=== PATIENT | male | born 2000 | race Caucasian/White ===

== ENCOUNTER 2019-07-14 15:10 | Emergency (ER) | payer BC ==
--- OUTSIDE RECORDS SUMMARY | 2019-07-14 15:12 | XMS REPORT | Summary of Care ---
:2000 Author Organization [facility] Address [address] [place] [address] Care Team Providers Name Role Phone JON GUTIERREZ M.D. 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 Start : 18-Oct-2018 Active 454 GM Bottle Alprolix SOLR Refills: 0 Active Allergies and Adverse Reactions Name Dates Details No Known Drug Allergies (Allergy) Status: Active Past Medical History Name Dates Details History of Hemarthrosis of joint (719.19, M25.00) Status: Resolved History of Hematoma of left iliopsoas muscle, subsequent encounter (V58.89, S70.12XD) Status: Resolved History of No significant past medical history Status: Resolved Procedures Procedure Dates Details History of Oral Surgery Tooth Extraction [place] [facility] Completed Immunization Name Dates Details Immunizations not documented Family History Name Dates Details Family history of Parkinson's disease (V17.2, Z82.0) Comments: Other Status: Active Name Dates Details Family history of hemophilia B (V18.3, Z83.2) Status: Active Social History Name Dates Details Unknown if ever smoked Vital Signs Date Test Result Details No Known Vitals to report Results Date Description Value Details Results not documented Plan of Care Name Dates Details Planned Observations Planned Goals not documented Planned Encounters Appointment; ADULT, HEMOPHILIA On: 05-Jul-2019 9:00 Instructions Name Dates Details Instructions not documented Encounters Appointment; ADULT, HEMOPHILIA On: 12-Oct-2018 9:30 Encounter Diagnosis: Problem not documented
--- OUTSIDE RECORDS SUMMARY | 2019-07-14 15:12 | XMS REPORT | Summary of Care ---
:2000 Author Name RY GUTIERREZ M.D. Address [facility] Unavailable , Care Team Providers Name Role Phone RY GUTIERREZ M.D. 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 Start : 18-Oct-2018 Active 454 GM Bottle Allergies and Adverse Reactions Name Dates Details No Known Drug Allergies (Allergy) Status: Active Past Medical History Name Dates Details History of Hemarthrosis of joint (719.19, M25.00) Status: Resolved History of Hematoma of left iliopsoas muscle, subsequent encounter (V58.89, S70.12XD) Status: Resolved History of No significant past medical history Status: Resolved Procedures Procedure Dates Details History of Oral Surgery Tooth Extraction [place] Tooth Completed Immunization Name Dates Details Immunizations not documented Family History Name Dates Details Family history of Parkinson's disease (V17.2, Z82.0) Comments: Other Status: Active Name Dates Details Family history of hemophilia B (V18.3, Z83.2) Status: Active Social History Name Dates Details Unknown if ever smoked Vital Signs Date Test Result Details [id number] BP Systolic 118 mm[Hg] Status: Comments: Location: LUE; Position: Sitting BP Diastolic 75 mm[Hg] Status: Comments: Location: LUE; Position: Sitting Height 68.75 in Status: Physical Findings 38 Status: Comments: 2-20 Stature Percentile Weight 73.48 kg Status: Body Mass Index Calculated 24.1 kg/m2 Status: Body Surface Area Calculated 1.88 m2 Status: Physical Findings 60 Status: Comments: 2-20 Weight Percentile Physical Findings 64 Status: Comments: BMI Percentile Temperature 98.4 f Status: Comments: Method: Oral Heart Rate 77 /min Status: Respiration Rate 18 /min Status: Comments: Quality: Normal Results Date Description Value Details Results not documented Plan of Care Name Dates Details Planned Observations Planned Goals not documented Planned Encounters Appointment; ADULT, HEMOPHILIA On: 31-May-2019 9:00 Interventions Provided PlanTreatment Plan/Recommendations: Labs Ordered Today Discussed Emergency Action Plan in the Event of a: Bleed Instructed to: Factor Infusion and Administration Education Provided, In the event of a Bleed call our Center for appropriate Treatment and Management, Notify our Center prior to Dental or Surgical Procedures, Wear Medical Alert ID at all times Avoid Nonsteroidal Anti- Inflammatory Drugs (NSAIDS), Aspirin and products containing Aspirin due toincreased risk of bleeding Maintain active Infusion/Bleed Event Logs and provide at next clinic visit Plan:1. 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 Unclear his real baseline FIX level.- For moderate bleeds recommend infusing Alprolix 30-50 IU/kg/dose and for major bleeds 60-90 IU/kg/dose- We discussed the importance of adherence to prevent joint bleeds and arthropathy especially when doing sports.2. Labs today show a normal CBC with a negative FIX inhibitor screen.3. We discussed the possible risks and complications of chewing tobacco. I encourage him to stop.4. Visit primary doctor and dentist at least once a year5. Return for follow-up in 6-12 months of sooner if indicated6. 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 Very active in sports and by history some adherence issueswith prophylaxis. Instructions Name Dates Details Instructions not documented Encounters Appointment; ADULT, HEMOPHILIA On: 12-Oct-2018 9:30 Encounter Diagnosis: Problem not documented
[2019-07-14] MEDS ORDERED: BUPIVACAINE 0.5% PF 10 ML VIAL ONE (16:43)
[2019-07-14] MEDS ORDERED: TETANUS & DIPHTHERIA TOX,ADULT 0.5 ML VIAL ONE (16:44)
--- NOTE | 2019-07-14 16:53 | RAD REPORT ---
EXAM DESCRIPTION: RAD - Hand Right 3 View - 07/14/2019 4:34 pm CLINICAL HISTORY: Right hand pain status post injury FINDINGS: No fracture or dislocation is seen. A 2.5 millimeter well-circumscribed lucency within the fourth middle phalanx is nonspecific. It is re commended that the patient a followup finger x-ray in 3 months to assess stability
--- NOTE | 2019-07-14 17:34 | ER ---
Nurse's Notes [facility] Name: Darian Velázquez Age: 19 yrs Sex: Male : 2000 Arrival Date: 07/14/2019 Time: 15:11 Bed 25 Private MD: Diagnosis: Finger Laceration Presentation: 07/14 15:14 Presenting complaint: Patient states: "I closed my finger in a car door" Laceration aj1 noted to right index finger, bleeding moderately, pressure dressing applied. Transition of care: patient was not received from another setting of care. Complicating Factors: There are no complicating factors for this patient. Onset of symptoms was July 14, 2019. Risk Assessment: Do you want to hurt yourself or someone else? Patient reports no desire to harm self or others. Initial Sepsis Screen: Does the patient meet any 2 criteria? No. Patient's initial sepsis screen is negative. Does the patient have a suspected source of infection? Yes: Skin breakdown/wound. Care prior to arrival: None. 15:14 Method Of Arrival: Ambulatory aj 15:14 Acuity: EVA 3 aj1 Triage Assessment: 15:14 General: Appears in no apparent distress. comfortable, Behavior is calm, cooperative, aj1 appropriate for age. Pain: Complains of pain in palmar aspect of distal phalanx of right index finger. Neuro: Level of Consciousness is awake, alert, obeys commands. Cardiovascular: Patient's skin is warm and dry. Respiratory: Airway is patent Respiratory effort is even, unlabored, Respiratory pattern is regular, symmetrical. Injury Description: Laceration sustained to palmar aspect of distal phalanx of right index finger. Historical: - Allergies: 15:15 No Known Allergies; aj1 - Home Meds: 15:15 None [Active]; aj1 - PMHx: 15:15 HEMOPHELIA B; aj1 - PSHx: 15:15 None; aj1 - Immunization history:: Flu vaccine is not up to date. - Coronavirus screen:: The patient has NOT traveled to [place] in the past 14 days. - Social history:: Smoking status: Patient/guardian denies using tobacco. - Ebola Screening: : Patient denies travel to an Ebola-affected area in the 21 days before illness onset. Screenin:56 Abuse screen: Denies threats or abuse. Denies injuries from another. Nutritional ls4 screening: No deficits noted. Tuberculosis screening: No symptoms or risk factors identified. Fall Risk None identified. Assessment: 16:00 Derm:. Musculoskeletal: Circulation, motion, and sensation intact. Capillary refill < 3 ls4 seconds, Range of motion: intact in all extremities, Swelling absent. Injury Description: Laceration is clean, 2.6 to 7.5 cm long, bleeding moderately, was sustained 30-60 minutes ago. is bleeding moderately a dressing was applied. 16:00 General: Appears in no apparent distress. Behavior is calm, cooperative. Neuro: No ls4 deficits noted. Cardiovascular: No deficits noted. Respiratory: No deficits noted. 17:00 Reassessment: Patient appears in no apparent distress at this time. Patient and/or ls4 family updated on plan of care and expected duration. Pain level reassessed. Patient is alert, oriented x 3, equal unlabored respirations, skin warm/dry/pink. WOUND SUTURED BY HEMAL BRYANT. WOUND CLEANED WITH SALINE AND OPEN TO AIR. Patient states symptoms have improved. Vital Signs: 15:14 BP 126 / 79; Pulse 65; Resp 18; Temp 98.1; Pulse Ox 97% on R/A; Weight 74.84 kg (R); aj1 Height 5 ft. 9 in. (175.26 cm) (R); Pain 1/10; 15:14 Body Mass Index 24.37 (74.84 kg, 175.26 cm) [facility] ED Course: 15:11 Patient arrived in ED. as 15:14 Arm band placed on Patient placed in waiting room, Patient notified of wait time. 1 15:15 Triage completed. [facility] 15:56 Patient has correct armband on for positive identification. Bed in low position. Call ls4 light in reach. Side rails up X 1. 15:56 Assist provider with laceration repair on palmar aspect of distal phalanx of right ls4 index finger. Patient did not have IV access during this emergency room visit. Irrigation of laceration on palmar aspect of distal phalanx of right index finger irrigated with normal saline Patient tolerated well. Wound care:. 15:57 Hemal Garcia PA is [facility]CP. [facility] 15:57 Mele Jennings MD is Attending Physician. [facility] 16:04 Hien Alfaro, WILMA is Primary Nurse. ls4 16:31 Hand Right 3 View XRAY In Process Unspecified. EDMS Administered Medications: 16:36 Drug: Tetanus-Diphtheria Toxoid Adult 0.5 ml {Business Services Assistant: [employer]. Exp: ls4 06/08/2021. Lot #: [id number]. } Route: IM; Site: right deltoid; 17:55 Follow up: Response: No adverse reaction ls4 16:44 Drug: Marcaine (0.5 %) 10 ml {Note: per Hemal bryant .} Volume: 10 ml; Route: ls4 Infiltration; Outcome: 17:33 Discharge ordered by . shivani 17:50 Condition: good ls4 17:50 Discharged to home ambulatory, with family. ls4 17:50 Discharge instructions given to patient, family, Instructed on discharge instructions, follow up and referral plans. medication usage, Demonstrated understanding of instructions, follow-up care, medications, Prescriptions given X 1. 18:10 Patient left the ED. ls4 Signatures: Dispatcher [employer] EDMS Morenita Van RN RN aj1 Hemal Garcia PA PA jmm Martinez, Amelia as Hien Alfaro RN RN ls4 Corrections: (The following items were deleted from the chart) 15:15 15:14 Acuity: EVA 4 aj1 aj1 16:56 16:36 Tetanus-Diphtheria Toxoid Adult 0.5 ml IM in right deltoid Business Services Assistant: [employer] Lot: [id number] Exp: 04/21/2021 ls4
--- NOTE | 2019-07-14 17:34 | EDPHYS ---
Physician Documentation [facility] Name: Darian Velázquez Age: 19 yrs Sex: Male : 2000 Arrival Date: 07/14/2019 Time: 15:11 Bed 25 Private MD: ED Physician Mele Jennings HPI: 07/14 16:17 This 19 yrs old Male presents to ER via Ambulatory with complaints of jmm Laceration - finger. 16:17 The patient or guardian reports injury, a laceration, clean. Onset: The jmm symptoms/episode began/occurred acutely. Modifying factors: The symptoms are alleviated by nothing, the symptoms are aggravated by nothing. Associated signs and symptoms: Pertinent negatives:. This is a 19 year old male with a history of hemophilia that presents to the ED with complaints of laceration to his right 2nd finger. Patient states he accidently slammed a car door on the finger. Not UTD on tetanus immunizations. . Historical: - Allergies: 15:15 No Known Allergies; aj1 - Home Meds: 15:15 None [Active]; aj1 - PMHx: 15:15 HEMOPHELIA B; aj1 - PSHx: 15:15 None; aj1 - Immunization history:: Flu vaccine is not up to date. - Coronavirus screen:: The patient has NOT traveled to [place] in the past 14 days. - Social history:: Smoking status: Patient/guardian denies using tobacco. - Ebola Screening: : Patient denies travel to an Ebola-affected area in the 21 days before illness onset. ROS: 16:17 Constitutional: Negative for fever, chills, and weight loss, Cardiovascular: Negative jmm for chest pain, palpitations, and edema, Respiratory: Negative for shortness of breath, cough, wheezing, and pleuritic chest pain. 16:17 MS/extremity: Positive for injury or acute deformity, laceration. 16:17 Skin: Positive for laceration(s). 16:17 All other systems are negative. Exam: 16:17 Constitutional: This is a well developed, well nourished patient who is awake, alert, jmm and in no acute distress. Head/Face: atraumatic. Eyes: EOMI, no conjunctival erythema appreciated ENT: Moist Mucus Membranes Neck: Trachea midline, Supple Chest/axilla: Normal chest wall appearance and motion. Cardiovascular: Regular rate and rhythm. No edema appreciated Respiratory: Normal respirations, no respiratory distress appreciated Abdomen/GI: Non distended, soft Back: Normal ROM 16:17 Skin: 2 cm laceration noted to the pad of the right 2nd finger, mild bleeding noted. 16:17 Neuro: Orientation: is normal, Mentation: is normal, Memory: is normal. 16:17 Psych: Behavior/mood is pleasant, cooperative. Vital Signs: 15:14 BP 126 / 79; Pulse 65; Resp 18; Temp 98.1; Pulse Ox 97% on R/A; Weight 74.84 kg (R); aj1 Height 5 ft. 9 in. (175.26 cm) (R); Pain 1/10; 15:14 Body Mass Index 24.37 (74.84 kg, 175.26 cm) aj1 Laceration: 17:29 Wound Repair of 2cm ( 0.8in ) subcutaneous laceration to palmar aspect of distal jmm phalanx of right index finger. Distal neuro/vascular/tendon intact. Anesthesia: Digital block administered with 3 mls of 0.5% marcaine. Wound prep: Moderate cleansing with betadine by me. Skin closed with 6 5-0 Prolene using simple sutures and sterile technique. Patient tolerated well. MDM: 16:17 Patient medically screened. shivani 17:30 Data reviewed: vital signs, nurses notes. Counseling: I had a detailed discussion with shivani the patient and/or guardian regarding: the historical points, exam findings, and any diagnostic results supporting the discharge/admit diagnosis, radiology results, the need for outpatient follow up, to return to the emergency department if symptoms worsen or persist or if there are any questions or concerns that arise at home. ED course: Patient given wound infection return precautions. I discussed xray results with the patient along with the need for repeat imaging. Patient understood and agrees with the plan of care. . 07/14 16:20 Order name: Hand Right 3 View XRAY; Complete Time: 17:18 [facility] [place] 07/14 17:22 Order name: Wound Care; Complete Time: 17:55 [facility] Administered Medications: 16:36 Drug: Tetanus-Diphtheria Toxoid Adult 0.5 ml {[employer] Developer: [employer]. Exp: ls4 06/08/2021. Lot #: [id number]. } Route: IM; Site: right deltoid; 17:55 Follow up: Response: No adverse reaction ls4 16:44 Drug: Marcaine (0.5 %) 10 ml {Note: per Anup bryant .} Volume: 10 ml; Route: ls4 Infiltration; Disposition: 19:08 Co-signature as Attending Physician, Mele Jennings MD I agree with the assessment and kdr plan of care. Disposition: 07/14/19 17:33 Discharged to Home. Impression: Finger Laceration. - Condition is Stable. - Discharge Instructions: Laceration Care, Adult. - Medication Reconciliation Form, Thank You Letter, Antibiotic Education, Prescription Opioid Use form. - Follow up: Private Physician; When: 2 - 3 days; Reason: Recheck today's complaints, Continuance of care, Re-evaluation by your physician. Signatures: Dispatcher [employer] EDMorenita Mak, RN RN aj1 Mele Jennings MD MD [facility] Anup Garcia PA PA jmm Stewart, Lisa, RN RN ls4 Corrections: (The following items were deleted from the chart) 18:10 17:33 07/14/2019 17:33 Discharged to Home. Impression: Finger Laceration. Condition is ls4 Stable. Forms are Medication Reconciliation Form, Thank You Letter, Antibiotic Education, Prescription Opioid Use. Follow up: Private Physician; When: 2 - 3 days; Reason: Recheck today's complaints, Continuance of care, Re-evaluation by your physician. shivani
[2019-07-14 18:37] VITALS: BP 126/79; TEMP 98.1; O2SAT 97
== END 2019-07-14 18:10 | disposition home or self-care (01) ==
LOC: ER 15:10
PROC: 0JQJ0ZZ Repair Right Hand Subcutaneous Tissue and Fascia, Open Approach (ICD-10-PCS; principal; 2019-07-14)
DX: S61.210A Laceration without foreign body of right index finger without damage to nail, initial encounter (principal); W23.0XXA Caught, crushed, jammed, or pinched between moving objects, initial encounter; Y93.9 Activity, unspecified; Y92.9 Unspecified place or not applicable; Z23 Encounter for immunization
CPT/HCPCS: 90471; 90714; 99284